=== PATIENT | female | born 1955 | race Caucasian/White ===

== ENCOUNTER → 2016-09-21 | Outpatient (CLI) | payer MEDICARE ==
[2016-09-21 08:49] LABS: ALT 43 U/L (9-52); AST 54 U/L (14-36); Alkaline Phosphatase 122 U/L (38-126); Anion Gap 14 mmol/L; Blood Urea Nitrogen 11 mg/dL (7-17); Calcium 9.5 mg/dL (8.4-10.2); Carbon Dioxide 25 mmol/L (22-30); Chloride 106 mmol/L (98-107); Glucose 120 mg/dL (74-99); Non-African American GFR(MDRD) >60 (>60 ml/min/1.73 sqM); Sodium 145 mmol/L (137-145); Total Bilirubin 1.2 mg/dL (0.2-1.3); Total Protein 8.1 g/dL (6.3-8.2)
--- NOTE | 2016-09-22 10:58 | MR ---
EXAMINATION TYPE: MR lumbar spine wo/w con DATE OF EXAM: 09/21/2016 9:58 AM COMPARISON: NONE HISTORY: hx of lsp surgery, chronic pain, lumbago Contrast: 15 mL MultiHance TECHNIQUE: T1 and T2 axial and sagittal, postcontrast T1 sagittal and axial images of the lumbar spi ne are submitted. FINDINGS: There is no abnormal signal seen within the visualized spinal cord or paraspinal soft tissu es. Tiny simple appearing renal cyst measuring less than 1 cm. At T12-L1 no disc herniation or canal stenosis. No foraminal encroachment. At L1-2 there is mild degenerative disc disease. Hypertrophic change of the facets noted. Minimal cir cumferential disc bulge with no canal stenosis. Significant foraminal encroachment. At L2-3 there is mild degenerative disc disease and facet arthropathy. Mild circumferential disc bulg ing. Mild right foraminal encroachment. Disc bulging extends laterally to the left moderate left-side d foraminal encroachment. Mass effect upon the exiting nerve root suspected. At L3-4 there is mild degenerative disc disease. There is mild bilateral facet arthropathy. No Canal stenosis. Circumferential disc bulging is greater far laterally to the left results in moderate left- sided foraminal encroachment. Mass effect upon the left nerve root suspected. At L4-5 there is vacuum disc and severe degenerative disc disease. There is a grade 1 anterolisthesis . Marked facet arthropathy. Ligamentum flavum hypertrophy is seen and there is suggestion of previous surgical intervention. No Canal stenosis. Moderate left foraminal encroachment and moderate right fo raminal encroachment. Enhancement posterior likely related to scar or granulation tissue. At L5-S1 there is moderate degenerative disc disease. Bilateral facet arthropathy. Central disc bulgi ng seen with mild right neural foraminal encroachment and moderate to severe left foraminal encroachm ent. Disc protrusion paracentrally right encroaches upon the right nerve root. IMPRESSION: 1. Mild degenerative disc disease at all levels with more moderate to severe changes at L4-5 and L5-S 1. Grade 1 anterolisthesis of L4 on L5. Suggestion of previous surgical intervention at this level wi th no obvious canal stenosis. Bilateral foraminal encroachment is seen. 2. Left foraminal encroachment with probable nerve root displacement L3-L4 secondary to a left latera l disc bulging. 3. Multilevel facet arthropathy 4. Small disc protrusion or disc herniation paracentrally the right L5-S1 with caudal migration which does encroach upon the right nerve root at this level. Correlate for radiculopathy on the right at t his level.
== END | disposition home or self-care (01) ==
LOC: RADMRIMAIN 08:01
PROVIDERS: ATTEND Physician Assistant
DX: M54.42 Lumbago with sciatica, left side (principal); M54.41 Lumbago with sciatica, right side; M51.36 Other intervertebral disc degeneration, lumbar region; M51.27 Other intervertebral disc displacement, lumbosacral region; G89.29 Other chronic pain; Z98.890 Other specified postprocedural states; M51.26 Other intervertebral disc displacement, lumbar region; I10 Essential (primary) hypertension
CPT/HCPCS: 80053; 72158; A9577

== ENCOUNTER → 2016-12-05 | Outpatient (CLI) | payer MEDICARE ==
[2016-12-05 09:38] LABS: EKG EKG PERFORMED
--- NOTE | 2016-12-05 10:10 | XR ---
EXAMINATION TYPE: XR chest 2V DATE OF EXAM: 12/05/2016 COMPARISON: NONE HISTORY: Presurgical study TECHNIQUE: Frontal and lateral views of the chest are obtained. FINDINGS: There is no focal air space opacity, pleural effusion, or pneumothorax seen. The cardiac silhouette size is within normal limits. The osseous structures are intact. Cholecystectomy clips a re noted on lateral view. IMPRESSION: No acute cardiopulmonary process.
[2016-12-05 10:45] LABS: Basophils # (A) 0.2 k/uL (0-0.2); Basophils % (A) 2 %; CH 30.9; CHCM 34.1; Eosinophils # (A) 0.4 k/uL (0-0.7); Eosinophils % (A) 4 %; HDW 2.34; HGB 15.2 gm/dL (11.4-16.0); Luc # (Auto) 0.23; Luc % (Auto) 2; Lymphocytes # (A) 3.3 k/uL (1.0-4.8); Lymphocytes % (A) 33 %; MCH 30.8 pg (25.0-35.0); MCHC 33.8 g/dL (31.0-37.0); MCV 91.1 fL (80.0-100.0); Mean Platelet Volume 7.6; Monocytes # (A) 0.6 k/uL (0-1.0); Monocytes % (A) 6 %; Neutrophils # (A) 5.4 k/uL (1.3-7.7); Neutrophils % (A) 54 %; RBC 4.94 m/uL (3.80-5.40); RDW 12.6 % (11.5-15.5); WBC (Perox) 9.85
[2016-12-05 11:01] LABS: Anion Gap 14 mmol/L; Appearance,Urine Clear (Clear); Bacteria,Urine Rare /hpf; Bilirubin,Urine Negative (Negative); Blood Urea Nitrogen 16 mg/dL (7-17); Calcium 9.3 mg/dL (8.4-10.2); Carbon Dioxide 21 mmol/L (22-30); Chloride 106 mmol/L (98-107); Glucose 88 mg/dL (74-99); Glucose,Urine (UA) Negative (Negative); Ketones,Urine Negative (Negative); Leukocyte Esterase,Urine Negative (Negative); Mucus,Urine Rare /hpf; Nitrite,Urine Negative (Negative); Non-African American GFR(MDRD) >60 (>60 ml/min/1.73 sqM); Particle Count 1961; Protein,Urine Negative (Negative); RBC,Urine 2 /hpf (0-5); Sodium 141 mmol/L (137-145); Specific Gravity,Urine 1.015 (1.001-1.035); Squamous Epithelial Cell,Urine 1 /hpf (0-4); UA Billing (MACRO vs. MICRO) MICRO; Urobilinogen,Urine <2.0 mg/dL (<2.0); WBC,Urine 1 /hpf (0-5)
[2016-12-05 11:41] LABS: INR 1.1 (<1.1); Partial Thromboplastin Time 25.2 sec (22.0-30.0); Prothrombin Time 11.1 sec (9.0-12.0)
== END | disposition home or self-care (01) ==
LOC: LABPAT 09:29
PROVIDERS: ATTEND Orthopaedic Surgery Orthopaedic Surgery of the Spine
DX: Z01.810 Encounter for preprocedural cardiovascular examination (principal); Z01.818 Encounter for other preprocedural examination; Z01.812 Encounter for preprocedural laboratory examination; M43.10 Spondylolisthesis, site unspecified
CPT/HCPCS: 71020; 80048; 81001; 85025; 85610; 85730; 86850; 86900; 86901; 87070; 93005

== ENCOUNTER 2016-12-14 07:30 | Inpatient (IN) | payer MEDICARE ==
[2016-12-06 10:31] VITALS: BMI 37.5
[~2016-12-14 07:30] MED LIST: BACITRACIN 50,000 UNIT, POLYMYXIN B 500,000 UNIT in SODIUM CHLORIDE 0.9% IRRIGATIO 1,00... IRRIGATION ONE; DEXAMETHASONE SOD PHOSPHATE 10 MG/ML 1 ML VIAL IV ONE; LIDOCAINE 1% 20 ML VIAL (10MG/ML) FOR IV START INTRADERMA PRN; MIDAZOLAM 2 MG/2 ML VIAL IV PRN; ONDANSETRON 4 MG/2 ML VIAL IVP ONE; SCOPOLAMINE 1.5MG/72HR PATCH TRANSDERM ONE; ceFAZolin 2 GM in SODIUM CHLORIDE 0.9% 100 ML IVPB ONE
[2016-12-14] MEDS: LACTATED RINGERS 1,000 ML IV SCH (08:13)
[2016-12-14] MEDS ORDERED: GLYCOPYRROLATE 0.2 MG/ML 2 ML VIAL ONE (10:15)
[2016-12-14] MEDS ORDERED: HYDROmorphone (PF) 1 MG/ML ONE (10:15)
[2016-12-14] MEDS ORDERED: LIDOCAINE 1% INJ 10MG/ML (20 ML MDV) ONE (10:15)
[2016-12-14] MEDS ORDERED: SODIUM CHLORIDE 0.9% IRRIG 1,000 ML BTL IRRIGATION ONE (10:15)
[2016-12-14] MEDS ORDERED: ROCURONIUM BROMIDE 10 MG/ML 10 ML VIAL IV ONE (10:15)
[2016-12-14] MEDS ORDERED: HEPARIN SODIUM,PORCINE 10,000 UNIT/ML 1 ML VIAL ONE (10:15)
[2016-12-14] MEDS ORDERED: fentaNYL (PF) 50 MCG/ML 2 ML AMP ONE (10:15)
[2016-12-14] MEDS ORDERED: PROPOFOL 10 MG/ML 20 ML VIAL IV ONE (10:15)
[2016-12-14] MEDS ORDERED: MIDAZOLAM 2 MG/2 ML VIAL ONE (10:15)
[2016-12-14] MEDS ORDERED: ePHEDrine 50 MG/ML 1 ML AMP ONE (10:15)
[2016-12-14] MEDS ORDERED: SUCCINYLCHOLINE CHLORIDE 100 MG/5 ML SYR IV ONE (10:15)
[2016-12-14] MEDS ORDERED: PHENYLEPHRINE-0.9% NACL SYG 1 MG/10 ML SYRINGE ONE (10:15)
[2016-12-14] MEDS ORDERED: NEOSTIGMINE 1 MG/ML 10 ML VIAL ONE (10:15)
[2016-12-14] MEDS ORDERED: SODIUM CHLORIDE 0.9% (PF) 10 ML VIAL ONE (10:37)
[2016-12-14] MEDS ORDERED: LIDOCAINE 0.5% (PF) 5 MG/ML (50 ML SDV) SQ ONE (10:51)
[2016-12-14] MEDS ORDERED: GELATIN SPONGE,ABSORB (SMALL) 1 EACH SPONGE TOPICAL ONE (10:53)
[2016-12-14] MEDS ORDERED: THROMBIN (BOVINE) 5,000 UNIT VIAL TOPICAL ONE (10:53)
[2016-12-14] MEDS: BUPIVACAINE LIPOSOME/PF 1.3% 20 ML, BUPIVACAIN-EPI 0.5%-1:200,000 25 ML, SODIUM CHLORID... MISCELLANE ONE ×6 (10:53→12:57)
[2016-12-14] MEDS ORDERED: LACTATED RINGERS 1,000 ML IV ONE ×3 (11:25→15:00)
--- NOTE | 2016-12-14 13:14 | FL ---
FLUOROSCOPY 1.22 minutes of fluoroscopy time were utilized during L4-5 fusion. 3 images document the procedure.
[2016-12-14] MEDS ORDERED: HYDROmorphone 1 MG/ML 1 ML SYRINGE IVP PRN ×2 (13:17)
[2016-12-14] MEDS ORDERED: BENZOCAINE/MENTHOL LOZENG 1 EACH LOZENGE MUCOUS MEM PRN (13:17)
[2016-12-14] MEDS ORDERED: DIAZEPAM 5 MG TAB PO PRN (13:17)
[2016-12-14] MEDS ORDERED: MAGNESIUM HYDROXIDE 2,400 MG/10 ML CUP PO PRN (13:17)
[2016-12-14] MEDS ORDERED: HYDROcodone/APAP 5-325MG 1 EACH TAB PO PRN (13:18)
[2016-12-14] MEDS ORDERED: ONDANSETRON 4 MG/2 ML VIAL IVP PRN (13:18)
[2016-12-14] MEDS ORDERED: diphenhydrAMINE 50 MG CAP PO PRN (13:24)
[2016-12-14] MEDS ORDERED: AZELASTINE 137MCG/SPRAY NASAL PRN (13:24)
--- NOTE | 2016-12-14 13:32 | P.OP ---
Date of Procedure: 12/14/16 Preoperative Diagnosis: Dynamic spondylolisthesis grade 2 at L4 5, low back pain with lower extremity radiculopathy, history of prior laminectomy decompression L4 5 Postoperative Diagnosis: Same Procedure(s) Performed: Implants: Anesthesia: GETA Pathology: none sent Condition: stable Disposition: PACU Indications for Procedure: Operative Findings: Description of Procedure: DESCRIPTION OF PROCEDURE(S): BRIEF OPERATIVE NOTE Preoperative Diagnosis: Dynamic spondylolisthesis, grade 2, L4 5 Low back pain with lower extremity radiculopathy History of prior laminectomy decompression L4 5 Postoperative Diagnosis: same Procedure: Revision minimally invasiveLaminectomy and decompression and discectomy L4 5 Minimally invasive Posterior lateral decompression and fusion L4 5 Minimally invasive Transforaminal lumbar interbody fusion for a 360 fusion L4 5 RevisionDiscectomy for decompression L4 5 Placement of interbody graft L4 5 Local autogenous bone grafting Use of Cell Saver Use of bone graft extenders Harvesting and use of bone marrow aspirate through the pedicle of L4 Surgeon: Dr. Adame Foundry Melt Supervisor: Hesham Wolf is present throughout the entire the case persistence during positioning, dissection, exposure, visualization, and all crucial elements of the case as well as closure. Anesthesia: General anesthesia Estimated blood loss: approximately 250 mL with 100 given back through Cell Saver Complications: None apparent Components implanted: K2M minimally invasive Vaughn screw system with 4 screws measuring 6.5 x 45 mm also with a [place] 10 mm interbody cage and osteal and sponge with fibrous DBX allograft Disposition: To recovery room in good stable condition. OPERATIVE INDICATIONS The patient has had long-standing issues in their lower back and lower extremities. The patient had a history of laminectomy decompression the past which did her well in terms of her radicular symptoms. She was doing well but then started having some increasing pain at her lower back the pain was progressive for her in significant we debilitating. She is found have a dynamic spondylolisthesis at L4 5 at the site of her prior laminectomy decompression. This finding correlated well with her lower extremity and back symptoms. The listhesis was not apparent on the MRI but was apparent on standing and dynamic films of her lumbar spine. The patient has been through conservative treatment. She is not having any lasting benefit despite conservative treatment and was having worsening of her symptoms and significant debility. We discussed various treatment options including surgery, and the patient wishes to proceed with surgery We discussed the risk, patient's alternatives and benefits of surgery including but not limited to, risk of bleeding risk of infection, risk of need for further surgery, risk of decreased , loss of motion, muscle function, malunion nonunion, hardware failure, nerve damage, paralysis, heart attack, blindness and . OPERATIVE SUMMARY After discussing all the risks, patient alternatives and benefits at length, the patient elected to proceed with surgical intervention, signed informed consent, and presented for their procedure. The patient was seen and examined in the preoperative holding area and the surgical site was marked. The patient was given antibiotics and brought to the operating room. The patient was sedated and intubated by anesthesia in standard fashion. The patient was positioned on to the operating room table in a prone position on the appropriate frame which was well-padded and well molded. We were careful to pad any bony prominences and pressure points. We were careful to maintain the patient's cervical spine and good neutral alignment and position throughout. The patient was prepped and draped in a normal standard fashion. An appropriate timeout and keystone protocol performed. We were able to proceed with the surgery. The local wound area was infiltrated with local anesthetic. I was able utilize C-arm guidance to establish appropriate position over the pedicles bilaterally at the appropriate levels of L4 and 5 . With the appropriate levels confirmed was able to make small stab incisions over the appropriate pedicle sites bilaterally. Utilizing C-arm in his house able to establish a Jamshidi needle over the lateral aspect of the pedicle and advanced the trocar into the pedicle being careful not to breech superiorly inferiorly medially or laterally. Position was confirmed regularly with AP and lateral images on C-arm. I was able to establish the trocar into the pedicle appropriately into the posterior aspect of the vertebral body bilaterally at the appropriate levels. This was done at each of the pedicle positions and each of the vertebrae. I was able place the guidewire into the trocar and into the vertebral body appropriately under C-arm guidance. Dissection was taken down over the wire to the appropriate starting position for the screw placed. The appropriate length screw was chosen, threaded over the guidewire and screwed appropriately into the pedicle and vertebral body under C-arm guidance in excellent alignment and position with good bony purchase. This is done at each of the screw sites at the appropriate levels at L4 and L5 . at L4 on the right I withdrew and harvested bone marrow aspirate from the pedicle hole which was used for enhancing the bone graft was used later in the case. With the screws intact I extended the incision to connect the screw hole sites on the most symptomatic side on the left . I dissected down to establish access over the pars and lamina to the base of the spinous process. I was able to expose the facet joint. The capsule the facet was taken down and showed some facet arthrosis at the joint. Note was made of the prior laminectomy site. There was some increased difficulty due to prior laminectomy I was able to perform a revision laminectomy and decompression on the left. I was able to use a combination of curettes and Kerr[place] rongeurs and a high-speed drill to take down the facet joint and do a facetectomy. Partial laminectomy was also performed. I was able get excellent foraminal decompression and central decompression with undermining across midline to perform a laminectomy centrally and contralaterally. As able get good central decompression. The ligamentum flavum was taken down to further decompress centrally and at bilateral neural foramen. I was able to expose the disc space and visualize the traversing nerve root. No was made of some disc protrusion at the level causing further compression of the nerve root. I was able to establish a annulotomy at the appropriate level protecting soft tissue and neural structures. I was able to perform revision discectomy for further decompression. Note was made of some disc desiccation at the disc. I performed a complete discectomy with accommodation of curettes and rasps and scrapers. I was able get good endplate preparation at the disc space. I sized for the appropriate size interbody spacer protecting the soft tissue and neural structures. The wound was copiously irrigated and suctioned dry. There is no evidence of any dural tear or leak. I was able to pack the disc space with local autogenous bone graft as well as a small amount of infuse which was also placed into the interbody cage itself. Protecting the soft tissue structures and neural structures I was able place the interbody cage in good alignment and good position with good fit and fill at the interbody space. His issues was confirmed with C-arm guidance. Good hemostasis maintained. There is no evidence of any dural tear or leak. The wound was irrigated and suctioned dry. With the hardware intact, intraoperative C-arm imaging was again taken which showed good alignment and position of the hardware at the appropriate levels of L4 and L5 . We were then able to measure, contour and place the rods and appropriate hardware bilaterally. I was able to place capcrews, tighten them down, and shear them off appropriately. The sheared portion was counted and accounted for. With this intact I was able to place the local autogenous bone graft with additional bone graft enhancer as necessary into the posterior lateral gutters and into the decorticated facet joint on the right. The remainder of the infuse was placed over the facet joint on the contralateral side after taking down the facet joint capsule. With the bone graft intact, a stable construct, and good decompression at the appropriate levels, we were able to proceed with closure. Good hemostasis was maintained. There is no evidence of dural tear or leak. The fascia was closed for a watertight closure. he subcuticular tissue was closed with absorbable suture. The wound was cleaned and dried and dressed with the appropriate dressing. The drapes were broken down. The patient was gently rolled back onto their hospital bed being careful to maintain their cervical spine and good neutral alignment and position. They were woken up by anesthesia, extubated, and brought to the recovery room in good stable condition. The patient will be admitted to the hospital for appropriate postoperative care , medical management and monitoring. We will continue to follow them closely about the postoperative course.
[2016-12-14] MEDS ORDERED: diphenhydrAMINE 50 MG/ML 1 ML VIAL IVP ONE (14:02)
[2016-12-14] MEDS: HYDROmorphone 1 MG/ML 1 ML SYRINGE IVP PRN ×2 (14:50→15:00)
[2016-12-14] MEDS: ceFAZolin 2 GM in SODIUM CHLORIDE 0.9% 100 ML IVPB SCH (17:46)
[2016-12-14] MEDS: PANTOPRAZOLE 40 MG TABLET PO SCH (17:46)
[2016-12-14] MEDS: HYDROcodone/APAP 5-325MG 1 EACH TAB PO PRN ×2 (17:50→21:43)
--- NOTE | 2016-12-14 18:28 | XR ---
EXAMINATION TYPE: XR chest 1V portable DATE OF EXAM: 12/14/2016 COMPARISON: 12/05/2016 HISTORY: Chest pain. Tachycardia. TECHNIQUE: Single frontal view of the chest is obtained. FINDINGS: Heart and mediastinum are normal. Lungs are clear. Diaphragm is normal. Bony thorax appear s intact. IMPRESSION: Normal chest. No change.
[2016-12-14 18:36] LABS: Basophils # (A) 0.1 k/uL (0-0.2); Basophils % (A) 1 %; CH 30.5; CHCM 33.9; Eosinophils # (A) 0.2 k/uL (0-0.7); Eosinophils % (A) 1 %; HCT 37.4 % (34.0-46.0); HDW 2.31; HGB 12.6 gm/dL (11.4-16.0); Luc % (Auto) 1; Lymphocytes # (A) 3.2 k/uL (1.0-4.8); Lymphocytes % (A) 21 %; MCH 30.3 pg (25.0-35.0); MCHC 33.6 g/dL (31.0-37.0); MCV 90.2 fL (80.0-100.0); Mean Platelet Volume 7.4; Monocytes # (A) 0.8 k/uL (0-1.0); Monocytes % (A) 5 %; Neutrophils # (A) 10.7 k/uL (1.3-7.7); Neutrophils % (A) 70 %; RBC 4.15 m/uL (3.80-5.40); RDW 12.5 % (11.5-15.5); WBC 15.2 k/uL (3.8-10.6); WBC (Perox) 15.33
[2016-12-14 18:55] LABS: ALT 49 U/L (9-52); AST 52 U/L (14-36); Alkaline Phosphatase 103 U/L (38-126); Anion Gap 10 mmol/L; Blood Urea Nitrogen 12 mg/dL (7-17); Calcium 8.3 mg/dL (8.4-10.2); Carbon Dioxide 25 mmol/L (22-30); Chloride 105 mmol/L (98-107); Glucose 95 mg/dL (74-99); Non-African American GFR(MDRD) >60 (>60 ml/min/1.73 sqM); Potassium 4.2 mmol/L (3.5-5.1); Sodium 140 mmol/L (137-145); Total Bilirubin 0.7 mg/dL (0.2-1.3)
[2016-12-14] MEDS: SODIUM CHLORIDE 0.9% 1,000 ML IV SCH (20:34)
[2016-12-14 23:38] LABS: Appearance,Urine Clear (Clear); Bacteria,Urine Rare /hpf; Bilirubin,Urine Negative (Negative); Glucose,Urine (UA) Negative (Negative); Ketones,Urine Negative (Negative); Leukocyte Esterase,Urine Trace (Negative); Nitrite,Urine Negative (Negative); PH, Urine 6.5 (5.0-8.0); Particle Count 601; Protein,Urine Negative (Negative); RBC,Urine <1 /hpf (0-5); Specific Gravity,Urine 1.003 (1.001-1.035); UA Billing (MACRO vs. MICRO) MICRO; Urobilinogen,Urine <2.0 mg/dL (<2.0); WBC,Urine 2 /hpf (0-5)
[2016-12-15] MEDS: HYDROcodone/APAP 5-325MG 1 EACH TAB PO PRN ×5 (01:50→21:20)
[2016-12-15] MEDS: ceFAZolin 2 GM in SODIUM CHLORIDE 0.9% 100 ML IVPB SCH (01:50)
[2016-12-15] MEDS: SODIUM CHLORIDE 0.9% 1,000 ML IV SCH ×2 (06:01→15:37)
[2016-12-15 07:00] LABS: Basophils # (A) 0.1 k/uL (0-0.2); Basophils % (A) 1 %; CH 29.8; CHCM 33.2; Eosinophils # (A) 0.4 k/uL (0-0.7); Eosinophils % (A) 3 %; HCT 35.1 % (34.0-46.0); HDW 2.35; Luc # (Auto) 0.24; Luc % (Auto) 2; Lymphocytes # (A) 2.1 k/uL (1.0-4.8); Lymphocytes % (A) 17 %; MCH 30.8 pg (25.0-35.0); MCHC 34.3 g/dL (31.0-37.0); MCV 89.9 fL (80.0-100.0); Mean Platelet Volume 7.2; Monocytes # (A) 0.7 k/uL (0-1.0); Monocytes % (A) 5 %; Neutrophils % (A) 72 %; RBC 3.91 m/uL (3.80-5.40); RDW 12.1 % (11.5-15.5); WBC 12.5 k/uL (3.8-10.6); WBC (Perox) 13.02
[2016-12-15 07:20] LABS: Anion Gap 7 mmol/L; Blood Urea Nitrogen 10 mg/dL (7-17); Calcium 8.2 mg/dL (8.4-10.2); Carbon Dioxide 27 mmol/L (22-30); Chloride 103 mmol/L (98-107); Glucose 104 mg/dL (74-99); Non-African American GFR(MDRD) >60 (>60 ml/min/1.73 sqM); Potassium 3.8 mmol/L (3.5-5.1); Sodium 137 mmol/L (137-145)
--- NOTE | 2016-12-15 08:05 | P.PN ---
Progress Note - Text Postoperative day #1 Patient is seen and examined today at bedside. The patient has some pain around the surgical site as expected. Pain is being controlled with medication. She was tachycardic yesterday which seems to have stabilized to some degree. Her EKG showed some possible changes which were being managed with medical service but she is having some elevated troponins this morning. She denies any chest pain or shortness of breath. She denies any significant cardiac history. She is not having a tightness in her chest her back. She does have some pain over her surgical site at her lower back as expected. Her legs are doing well. Physical Exam Afebrile with stable vital signs Abdomen is soft nontender. Chest has good excursion deep and space expiration The incision site is clean dry and intact. No erythema there is no purulence. Extremities have not had neurologic change from prior to surgery.She has sustained dorsal flexion plantar flexion and extensor hallucis longus intact. Calves and thighs were soft nontender without evidence of DVT. Assessment/Plan Postoperative day #1 status post decompression and fusion with minimally invasive approach at L4 5 for her dynamic spondylolisthesis Tachycardia with elevated troponins The patient is not having any cardiac symptoms other than her tachycardia which her labs do show some potential elevation. Medicine is following her and cons we have consult to cardiology involved case also following manage for any cardiac issues. Otherwise in terms of her spine the Patient is progressing as expected from the surgery. She has some pain in her lower back but she is already sitting up in sinus bed and eating her breakfast. She seems to progressing appropriately from her surgery and hopefully we will continue to make good progress We will continue to increase the patient's mobilization with therapy. We will continue pain control with oral or IV medications. We'll continue to follow patient closely.
[2016-12-15] MEDS: LACTATED RINGERS 1,000 ML IV SCH (08:56)
[2016-12-15] MEDS: amLODIPine 5 MG TAB PO SCH (09:37)
[2016-12-15] MEDS: PARoxetine 20 MG TAB PO SCH (09:37)
[2016-12-15] MEDS: PANTOPRAZOLE 40 MG TABLET PO SCH ×2 (09:37→17:40)
[2016-12-15] MEDS: SENNOSIDES-DOCUSATE SODIUM 1 EACH TAB PO SCH (09:38)
--- NOTE | 2016-12-15 11:14 | P.CRDCN ---
History of Present Illness Consult date: 12/15/16 Consult reason: post-op evaluation History of present illness: 61-year-old lady with history of mild hypertension underwent spinal fusion surgery yesterday and had tachycardia for which cardiology was consulted. An EKG showed sinus rhythm without acute ST-T wave changes. Her troponin was mildly elevated and of unclear significance. She denied chest pain difficulty in breathing palpitations dizziness or syncope. There is no prior cardiac history. There is no history of coronary artery disease congestive heart failure R valvular heart disease. In the moment patient is free of symptoms heart rate is normal. The exact etiology for mild troponin elevation is unclear the check echocardiogram could be related to the perioperative period. I will obtain a 2-D echo to assess LV function and wall motion. If this looks normal she doesn't require further evaluation at this time but on discharge I'm going to schedule her for a stress test. Review of Systems Constitutional: Denies chills. Denies fever. Eyes: Denies blurred vision. Denies pain. Ears, nose, mouth and throat: Denies headache. Denies sore throat. Cardiovascular: Denies chest pain. Denies shortness of breath. Respiratory: Denies cough. Gastrointestinal: Denies abdominal pain. Denies diarrhea. Denies nausea. Denies vomiting. Musculoskeletal: Denies myalgias. Back pain Integumentary: Denies pruritus. Denies rash. Neurological: Denies numbness. Denies weakness. Psychiatric: Denies anxiety. Denies depression. Endocrine: Denies fatigue. Denies weight change. Genitourinary: Denies burning, hematuria, frequency of urination. Hematological: No anemia or excess bleeding. Past Medical History Past Medical History: GERD/Reflux, Hypertension, Pneumonia, Skin Disorder Additional Past Medical History / Comment(s): hx migraines, occ palpitations, arthritis in hands, psoriasis, History of Any Multi-Drug Resistant Organisms: None Reported Past Surgical History: Back Surgery, Section, Cholecystectomy, Orthopedic Surgery, Tonsillectomy Additional Past Surgical History / Comment(s): tonny carpal tunnel, arthroscopy rt knee, cervical surgery x 2, sinus surgery x 3, trigger finger middle finger both hands, bunionectomy rt foot, Past Anesthesia/Blood Transfusion Reactions: Postoperative Nausea & Vomiting ( PONV) Additional Past Anesthesia/Blood Transfusion Reaction / Comment(s): past cervical surgery-states no limitations in neck movement and no problems with general anesthesia Past Psychological History: Anxiety Smoking Status: Former smoker - Past Family History Father Family Medical History: Deep Vein Thrombosis (DVT) Brother(s) Family Medical History: No Reported History Medications and Allergies Home Medications Medication Instructions Recorded Confirmed Type Azelastine HCl [Astepro] 2 spray NASAL DAILY PRN 12/06/16 12/14/16 History Multivitamin [Multiple Vitamins] 1 tab PO DAILY 12/06/16 12/14/16 History Omeprazole [PriLOSEC] 20 mg PO AC-BID 12/06/16 12/14/16 History PARoxetine [Paxil] 20 mg PO DAILY 12/06/16 12/14/16 History amLODIPine [Norvasc] 5 mg PO DAILY 12/06/16 12/14/16 History Allergies Allergy/AdvReac Type Severity Reaction Status Date / Time acetaminophen [From Vicodin] Allergy Itching/ignacio Verified 12/06/16 10:19 h codeine Allergy Itching Verified 12/06/16 10:19 hydrocodone Allergy Itching Verified 12/06/16 10:19 meperidine [From Demerol] Allergy Itching Verified 12/06/16 10:19 morphine Allergy Itching Verified 12/06/16 10:19 tramadol [From Ultram] Allergy Itching Verified 12/06/16 10:19 Physical Exam Vitals: Vital Signs Temp Pulse Pulse Pulse Pulse Resp BP 12/15/16 08:06 92 92 12/15/16 07:42 97.1 F L 92 97 92 18 12/15/16 01:29 98.2 F 96 16 116/58 12/14/16 20:00 122 H 12/14/16 19:10 98.7 F 123 H 16 113/50 12/14/16 18:30 113/50 12/14/16 18:15 116/47 12/14/16 18:00 125/61 12/14/16 17:45 114/80 12/14/16 17:30 116/61 12/14/16 17:15 120/50 12/14/16 17:00 117/62 12/14/16 16:45 121/55 12/14/16 16:30 99.1 F 130 H 16 124/51 12/14/16 16:00 129 H 18 112/53 12/14/16 15:45 133 H 18 116/56 12/14/16 15:32 135 H 18 109/55 12/14/16 15:17 125 H 18 123/56 12/14/16 15:02 127 H 18 121/58 12/14/16 14:45 128 H 18 118/56 12/14/16 14:30 126 H 18 128/57 12/14/16 14:15 129 H 18 130/63 12/14/16 14:00 127 H 16 150/70 12/14/16 13:45 98 F 120 H 16 125/59 BP Pulse Ox 12/15/16 08:06 12/15/16 07:42 112/74 95 12/15/16 01:29 98 12/14/16 20:00 12/14/16 19:10 96 12/14/16 18:30 12/14/16 18:15 12/14/16 18:00 12/14/16 17:45 12/14/16 17:30 12/14/16 17:15 12/14/16 17:00 12/14/16 16:45 12/14/16 16:30 93 L 12/14/16 16:00 94 L 12/14/16 15:45 93 L 12/14/16 15:32 94 L 12/14/16 15:17 94 L 12/14/16 15:02 97 12/14/16 14:45 99 12/14/16 14:30 98 12/14/16 14:15 98 12/14/16 14:00 99 12/14/16 13:45 97 Intake and Output 12/14/16 12/15/16 12/15/16 22:59 06:59 14:59 Intake Total 1105 235 4438 Output Total 550 1700 Balance 750 900 852 Intake: IV 1300 1900 Invasive Line 1 1900 Intake, IV Titration 900 650 Amount Sodium Chloride 0.9% 1, 900 650 000 ml @ 75 mls/hr IV . [id number] [facility] Rx#:[id number] Oral 2 Output: Urine 550 1700 Uretheral (Dang) 700 Other: Voiding Method Indwelling Catheter Weight 90.265 kg General: The patient is awake and alert, in no distress, and does not appear acutely ill. Skin: Skin is warm and dry and no rashes or lesions are noted. Eye: Pupils are equal, round and reactive to light, extra-ocular movements are intact; there is normal conjunctiva bilaterally. Ears, nose, mouth and throat: There are moist mucous membranes and no oral lesions. Neck: The neck is supple, there is no tenderness or JVD. Cardiovascular: There is a regular rate and rhythm. No murmur, rub or gallop is appreciated. Respiratory: Lungs are clear to auscultation, respirations are non-labored, breath sounds are equal. Gastrointestinal: Soft, non-distended, non-tender abdomen without masses or organomegaly noted. There is no rebound or guarding present. Bowel sounds are unremarkable. Back: There is no tenderness to palpation in the midline. There is no obvious deformity. Patient is status post surgery Musculoskeletal: Normal ROM, no tenderness, There is no pedal edema. There is no calf tenderness or swelling. Extremities: No edema. Vascular: Femoral pulse is normal. Posterior tibial pulses are normal .Dorsalis pedis is palpable. Neurological: CN II-XII intact. There are no obvious motor or sensory deficits. Speech is normal. Psychiatric: Cooperative, appropriate mood & affect, normal judgment. Results 12/15/16 06:30 12/15/16 06:30 Cardiac Enzymes 12/14/16 12/14/16 12/15/16 Range/Units 18:24 18:24 06:30 AST 52 H (14-36) U/L Troponin I 0.014 0.035 H* (0.000-0.034) ng/mL CBC 12/14/16 12/15/16 Range/Units 18:24 06:30 WBC 15.2 H 12.5 H (3.8-10.6) k/uL RBC 4.15 3.91 (3.80-5.40) m/uL Hgb 12.6 12.0 (11.4-16.0) gm/dL Hct 37.4 35.1 (34.0-46.0) % Plt Count 117 L 104 L (150-450) k/uL Comprehensive Metabolic Panel 12/14/16 12/15/16 Range/Units 18:24 06:30 Sodium 140 137 (137-145) mmol/L Potassium 4.2 3.8 (3.5-5.1) mmol/L Chloride 105 103 (98-107) mmol/L Carbon Dioxide 25 27 (22-30) mmol/L BUN 12 10 (7-17) mg/dL Creatinine 0.70 0.60 (0.52-1.04) mg/dL Glucose 95 104 H (74-99) mg/dL Calcium 8.3 L 8.2 L (8.4-10.2) mg/dL AST 52 H (14-36) U/L ALT 49 (9-52) U/L Alkaline Phosphatase 103 (38-126) U/L Total Protein 6.0 L (6.3-8.2) g/dL Albumin 3.4 L (3.5-5.0) g/dL Current Medications Generic Name Dose Route Start Last Admin Trade Name Freq PRN Reason Stop Dose Admin Hydrocodone Bitart/Acetaminophen 1 each 12/14/16 13:18 [place] 5-325 PO Q4HR PRN Moderate Pain Hydrocodone Bitart/Acetaminophen 2 each 12/14/16 13:18 12/15/16 10:24 [place] 5-325 PO 2 each Q4HR PRN Administration Moderate Pain Amlodipine Besylate 5 mg 12/15/16 09:00 12/15/16 09:37 Norvasc PO 5 mg DAILY ROHITH Administration Azelastine HCl 2 spray 12/14/16 13:24 Astepro NASAL DAILY PRN Nasal Congestion Benzocaine/Menthol 1 each 12/14/16 13:17 Cepacol Lozenge MUCOUS MEM Q4HR PRN Sore Throat Diazepam 5 mg 12/14/16 13:17 Valium PO QID PRN Anxiety Diphenhydramine HCl 50 mg 12/14/16 13:24 Benadryl PO QID PRN Itching Hydromorphone HCl 0.5 mg 12/14/16 13:17 Dilaudid IVP Q4HR PRN Pain Hydromorphone HCl 1 mg 12/14/16 13:17 Dilaudid IVP Q4HR PRN Pain Lactated Ringer's 1,000 mls @ 20 mls/hr 12/14/16 06:01 12/15/16 08:56 Lactated Ringers IV Not Given .Q24H ROHITH Sodium Chloride 1,000 mls @ 75 mls/hr 12/14/16 13:30 12/15/16 06:01 Saline 0.9% IV Not Given .[id number] ROHITH Lidocaine HCl 0.1 ml 12/14/16 06:01 12/14/16 08:13 .Xylocaine 1% Inj (10mg/Ml) For Iv Start INTRADERMA 0.1 ml PER PROTOCOL PRN Administration IV Start Magnesium Hydroxide 2,400 mg 12/14/16 13:17 Milk Of Magnesia PO DAILY PRN Constipation Multivitamins 1 each 12/15/16 12:00 Theragran PO DAILY@1200 ROHITH Ondansetron HCl 4 mg 12/14/16 13:18 Zofran IVP Q8HR PRN Nausea And Vomiting Pantoprazole Sodium 40 mg 12/14/16 17:30 12/15/16 09:37 Protonix PO 40 mg AC-BID ROHITH Administration Paroxetine HCl 20 mg 12/15/16 09:00 12/15/16 09:37 Paxil PO 20 mg DAILY ROHITH Administration Senna/Docusate Sodium 1 each 12/15/16 09:00 12/15/16 09:38 Senokot-S PO 1 each DAILY ROHITH Administration Intake and Output 12/14/16 12/15/16 12/15/16 22:59 06:59 14:59 Intake Total 0002 687 9197 Output Total 550 1700 Balance 750 900 852 Intake: IV 1300 1900 Invasive Line 1 1900 Intake, IV Titration 900 650 Amount Sodium Chloride 0.9% 1, 900 650 000 ml @ 75 mls/hr IV . [id number] [facility] Rx#:[id number] Oral 2 Output: Urine 550 1700 Uretheral (Dang) 700 Other: Voiding Method Indwelling Catheter Weight 90.265 kg 12/15/16 06:30 12/15/16 06:30 EKG Interpretations (text) Normal sinus rhythm with sinus tachycardia Assessment and Plan Plan: Mild troponin elevation Sinus tachycardia History of hypertension Status post lumbar fusion surgery I reviewed EKG lab tests. I will follow troponin. I'm going to review an echocardiogram. I don't anticipate much further testing at this time.
--- NOTE | 2016-12-15 12:47 | ECHOF ---
Referral Reason:tachycardia MEASUREMENTS -------- HEIGHT: 154.9 cm WEIGHT: 90.3 kg BP: 116/58 RVIDd: 3.2 cm (< 3.3) IVSd: 1.1 cm (0.6 - 1.1) LVIDd: 4.7 cm (3.9 - 5.3) LVPWd: 1.1 cm (0.6 - 1.1) IVSs: 1.6 cm LVIDs: 2.7 cm LVPWs: 1.6 cm LAESV Index (A-L): 28.27 ml/m Ao Diam: 3.0 cm (2.0 - 3.7) AV Cusp: 2.0 cm (1.5 - 2.6) LA Diam: 3.8 cm (2.7 - 3.8) MV EXCURSION: 17.896 mm (> 18.000) MV EF SLOPE: 110 mm/s (70 - 150) EPSS: 0.8 cm MV E Cosme: 1.07 m/s MV DecT: 233 ms MV A Cosme: 1.28 m/s MV E/A Ratio: 0.84 RAP: 5.00 mmHg RVSP: 13.49 mmHg FINDINGS -------- Sinus rhythm. This was a technically adequate study. Overall left ventricular systolic function is normal with, an EF between 60 - 65 %. The right ventricle is normal in size and function. LA is midly dilated 29-33ml/m2. The right atrium is normal in size. Aortic valve is trileaflet and is mildly thickened. There is no evidence of aortic regurgitation. There is no evidence of aortic stenosis. The mitral valve leaflets are mildly thickened. Mild mitral annular calcification present. There is trace mitral regurgitation. Trace tricuspid regurgitation present. The pulmonic valve was not well visualized. The aortic root size is normal. Normal inferior vena cava with normal inspiratory collapse consistent with estimated right atrial pressure of 5 mmHg. The pericardium is normal. There is no pericardial effusion. CONCLUSIONS -------- 1. Sinus rhythm. 2. The pulmonic valve was not well visualized. 3. The aortic root size is normal. 4. There is no pericardial effusion. 5. This was a technically adequate study. 6. Overall left ventricular systolic function is normal with, an EF between 60 - 65 %. 7. LA is midly dilated 29-33ml/m2. 8. Aortic valve is trileaflet and is mildly thickened. 9. The mitral valve leaflets are mildly thickened. 10. Mild mitral annular calcification present. 11. There is trace mitral regurgitation. 12. Trace tricuspid regurgitation present. SCALE TECHNICIAN: Timmy Gtz RDCS
[2016-12-15] MEDS: MULTIVITAMINS, THERA 1 EACH TAB PO SCH (12:59)
[2016-12-15] MEDS: METOPROLOL TARTRATE 12.5 MG TAB PO SCH (12:59)
[2016-12-16] MEDS: HYDROcodone/APAP 5-325MG 1 EACH TAB PO PRN ×4 (07:01→21:26)
[2016-12-16] MEDS: SODIUM CHLORIDE 0.9% 1,000 ML IV SCH ×2 (07:15→19:51)
[2016-12-16] MEDS: LACTATED RINGERS 1,000 ML IV SCH (07:15)
[2016-12-16] MEDS: PANTOPRAZOLE 40 MG TABLET PO SCH ×2 (07:34→17:24)
[2016-12-16] MEDS: amLODIPine 5 MG TAB PO SCH (08:51)
[2016-12-16] MEDS: METOPROLOL TARTRATE 12.5 MG TAB PO SCH (08:52)
[2016-12-16] MEDS: PARoxetine 20 MG TAB PO SCH (08:55)
--- NOTE | 2016-12-16 10:29 | P.PN ---
Subjective Principal diagnosis: Elevated troponin Patient is doing well and is free of symptoms echocardiogram is within normal limits the next set of troponin is normal no further workup at this time will need outpatient stress test Objective - Vital Signs Vital signs: Vital Signs Temp 98.3 F 12/16/16 07:48 Pulse 87 12/16/16 09:25 Resp 19 12/16/16 09:25 BP 116/73 12/16/16 07:48 Pulse Ox 96 12/16/16 09:38 Intake & Output 12/15/16 12/16/16 12/16/16 18:59 06:59 18:59 Intake Total 2552 750 3 Output Total 2000 Balance 552 750 3 Intake: IV 1900 Invasive Line 1 1900 Intake, IV Titration 650 750 Amount Sodium Chloride 0.9% 1, 650 750 000 ml @ 75 mls/hr IV . [id number] [facility] Rx#:[id number] Oral 2 3 Output: Urine 2000 Uretheral (Dang) 700 Other: Voiding Method Toilet Toilet - Exam Comfortable at rest vital signs are stable there is a jugular venous distention chest exam reveals good air entry bilaterally heart exam reveals first and second heart sounds no gallop exam extremities did not will any edema per for pulses are felt - Labs CBC & Chem 7: 12/15/16 06:30 12/15/16 06:30 Assessment and Plan Plan: Elevated troponin of unclear clinical significance Further workup at this time Stable to be discharged home Outpatient stress test
[2016-12-16] MEDS: SENNOSIDES-DOCUSATE SODIUM 1 EACH TAB PO SCH (11:12)
[2016-12-16] MEDS: MULTIVITAMINS, THERA 1 EACH TAB PO SCH (11:12)
--- NOTE | 2016-12-16 13:12 | P.PN ---
Progress Note - Text Orthopedic Spine Patient is a pleasant 61-year-old female who is seen and examined at the bedside following posterior lateral decompression and fusion performed Monday. Patient states they are doing well postsurgically. She has been able to discontinue Dilaudid IV. She continues to take [place] as prescribed as needed for some control of her symptoms. She continues to have some pain at the surgical sites of the lumbar spine. She complains of left thigh pain today as well. Overall, she states she does feel she is improving as compared to yesterday. She has been able to ambulate the hallways with the assistance of physical therapy. Her Dang catheter has been discontinued. Currently does not complain of nausea, vomiting, fever, or chills. Patient states her pain has been adequately controlled. Patient is eating and voiding freely without difficulty. She feels that if she continues to improve today, she may be ready for discharge home tomorrow, 12/17/2016. She also states she is not currently experiencing any cardiac symptoms. She's been seen and examined by Dr. Parker. She states after further examination by him and after an echo cardiogram, he has cleared her for discharge with follow-up evaluation in the outpatient setting. Patient states she already has a walker for home as well. Physical Exam Lumbar Fusion: Status post surgical day number 2 Patient is awake, alert, and oriented 3 Vital signs stable Good chest excursion with deep inspiration and expiration Abdomen soft nontender Dorsiflexion, plantarflexion, and extensor hallucis longus positive sustained bilaterally No signs or symptoms of DVT; no calf pain; pneumatic cuffs intact bilateral lower extremities Dressing is clean, dry, and intact; no erythema, purulence, or signs of infection Neurovascularly intact bilaterally lower extremities Assessment: Revision L4-5 laminectomy, decompression and discectomy with minimally invasive posterior lateral decompression and fusion L4-5 Transforaminal lumbar interbody fusion L4-5 Plan: 1. Ambulate as tolerated; work with Physical Therapy to increase mobilization 2. Continue pain control with oral medications; patient will be given prescriptions for [place] 7.5 mg / 325mg 1 tab every 6 hours as needed for pain dispense #90 and Flexeril 10 mg 1 tab every 8 hours for muscle spasm dispensed # 90 discharge 3. Dressing changed to Telfa and Tegaderm; patient may shower with Tegaderm dressing intact 4. Medical management and cardiology will continue to manage patient for patient's other medical issues 5. We will continue to follow the patient closely; if the patient continues to improve, we will plan for discharge home tomorrow, 12/17/2016 6. Patient can follow-up with Hesham Myles PA-C or Dr. Adithya Adame at [facility] in 2-3 weeks following discharge
[2016-12-17] MEDS: HYDROcodone/APAP 5-325MG 1 EACH TAB PO PRN ×3 (01:37→11:09)
[2016-12-17 07:18] VITALS: PULSE 87; RESP 18; TEMP 97.1
[2016-12-17] MEDS: PANTOPRAZOLE 40 MG TABLET PO SCH (07:35)
[2016-12-17] MEDS: PARoxetine 20 MG TAB PO SCH (07:35)
[2016-12-17] MEDS: SENNOSIDES-DOCUSATE SODIUM 1 EACH TAB PO SCH (07:35)
[2016-12-17] MEDS: MULTIVITAMINS, THERA 1 EACH TAB PO SCH (07:35)
[2016-12-17] MEDS: LACTATED RINGERS 1,000 ML IV SCH (07:36)
[2016-12-17] MEDS: SODIUM CHLORIDE 0.9% 1,000 ML IV SCH (07:36)
--- NOTE | 2016-12-17 09:52 | CONS ---
REASON FOR CONSULTATION: Advice regarding sinus tachycardia requested by Dr. Adame. 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 Adame. The patient apparently tolerated the procedure well and from the postop floor the patient had sinus tachycardia in the range of 125 to 133. The patient is currently drowsy after surgery, unable to give a coherent history. Most of the history was taken from my discussion with staff and review of the chart at this time. There is no history of trauma. No history of any fever, rigors or chills. No history of chest pain, palpitations or shortness of breath at this time. The pulse ox has been 94% on 3-L. PAST MEDICAL HISTORY: History of GERD, hypertension, history of pneumonia, migraines, palpitations, DJD, history of back surgery, history of tonsillectomy. Medications prior to admission include the home medications are: 1. Norvasc 5 mg p.o. daily. 2. Paxil 10 mg daily. 3. Prilosec 20 mg daily. 4. Multivitamins 1 p.o. daily. 5. Astepro 2 sprays daily p.r.n. ALLERGIES: VICODIN, CODEINE, HYDROCODONE, MEPERIDINE, MORPHINE, ULTRAM. FAMILY HISTORY: History of DVT in the family. SOCIAL HISTORY: Previous history of smoking, no current smoking. Occasional alcohol intake. REVIEW OF SYSTEMS: The review of systems could not be taken at length because the patient is drowsy after surgery with sedatives. PHYSICAL EXAM: Pulse is 133 irregular, blood pressure 116/56, respirations 18, temperature is normal, pulse ox is 93% on 3-L. HEENT: Conjunctivae normal. Oral mucosa moist. NECK: No jugular venous distention. No carotid bruit. No lymph node enlargement. CARDIOVASCULAR: S1, S2, tachycardic. RESPIRATORY: Breath sounds diminished at the bases. No rhonchi, no crackles. ABDOMEN: Soft, nontender. No mass palpable. LEGS: No edema, no swelling. NERVOUS SYSTEM: As mentioned earlier, otherwise the patient is drowsy. SKIN: No ulcer, rash or bleeding. LYMPHATICS: No lymph node palpable in the neck, groin or axillae. BACK: Status post surgery. The labs are not available. ASSESSMENT: 1. Tachycardia, possibly sinus postop. 2. Status post revision laminectomy and decompression of L4-5 for spondylolisthesis L4-5 and low back pain with radiculopathy. 3. History of prior laminectomy and decompression L4-5. 4. History of gastroesophageal reflux disease. 5. History of hypertension. 6. History of pneumonia. 7. History of migraines. 8. History of palpitations. 9. History of degenerative joint disease. 10. History of psoriasis. 11. History of section. 12. History of anxiety, not otherwise specified. 13. Remote history of nicotine dependence. 14. FULL CODE. 15. Obesity with body mass index of 37.6. RECOMMENDATIONS AND DISCUSSION: In this 61-year-old woman who presented after surgery, after this time I recommend to continue the current monitoring, continue the current medications, continue symptomatic treatment. I recommend an EKG which shows sinus tachycardia. I recommend to continue to monitor telemetry. Set of troponins and 2-D echo also may be ordered. Otherwise the portable chest x-ray also will be ordered because of the relative hypoxia which is found to be normal at this time. Continue to monitor. Patient may be asked to follow with primary physician closely after discharge. Home medications will be continued. Thank you Dr. Adame for letting us participate in this patient's care. See orders for details. OTILIO
[2016-12-17 11:05] VITALS: BP 109/53
[2016-12-17] MEDS: METOPROLOL TARTRATE 12.5 MG TAB PO SCH (11:05)
[2016-12-17] MEDS: amLODIPine 5 MG TAB PO SCH (11:05)
--- NOTE | 2016-12-17 11:11 | P.DS ---
Providers Date of admission: 12/14/16 07:46 Expected date of discharge: 12/17/16 Attending physician: Pee Adame Consults: 12/14/16 13:18 Consult Physician Routine Consulting Provider: Elpidio Marx Consult Reason/Comments: Medical management Do you want consulting provider notified?: Yes 12/15/16 08:09 Consult Physician Stat Consulting Provider: Bubba Rowell Consult Reason/Comments: elevated trop, tachycardia Do you want consulting provider notified?: Yes Primary care physician: Kike Yuen - Discharge Diagnosis(es) (1) Status post lumbar spinal fusion Current Visit: Yes Status: Acute Hospital Course: This is a 61-year-old female who is admitted to [facility] on 12/06/2016 for revision laminectomy with posterior lumbar decompression and fusion of L4 5 with transforaminal interbody fusion of L4 5, minimally invasive. The procedures performed without convocation or sequelae. Patient is doing well postoperatively. She is ambulating well with her walker with minimal assistance. On postoperative day #3 she is doing well and ready for discharge. Patient is discharged to home on 12/17/2016. Continue to ambulate as tolerated. Report any problems to our office. Plan - Discharge Summary New Discharge Prescriptions: New Cyclobenzaprine [Flexeril] 10 mg PO TID PRN #90 tab PRN Reason: Muscle Spasm HYDROcodone/APAP 7.5-325MG [[place] 7.5-325] 1 each PO Q6HR PRN #90 tab PRN Reason: Pain No Action Azelastine HCl [Astepro] 2 spray NASAL DAILY PRN PRN Reason: Nasal Congestion amLODIPine [Norvasc] 5 mg PO DAILY PARoxetine [Paxil] 20 mg PO DAILY Omeprazole [PriLOSEC] 20 mg PO AC-BID Multivitamin [Multiple Vitamins] 1 tab PO DAILY Discharge Medication List Azelastine HCl [Astepro] 2 spray NASAL DAILY PRN 12/06/16 [History] Multivitamin [Multiple Vitamins] 1 tab PO DAILY 12/06/16 [History] Omeprazole [PriLOSEC] 20 mg PO AC-BID 12/06/16 [History] PARoxetine [Paxil] 20 mg PO DAILY 12/06/16 [History] amLODIPine [Norvasc] 5 mg PO DAILY 12/06/16 [History] Cyclobenzaprine [Flexeril] 10 mg PO TID PRN #90 tab 12/16/16 [Rx] HYDROcodone/APAP 7.5-325MG [[place] 7.5-325] 1 each PO Q6HR PRN #90 tab 12/16/16 [ Rx] Follow up Appointment(s)/Referral(s): Hesham Myles, VANDANA [PHYSICIAN AP OPERATOR] - 2 Weeks (Patient may follow-up with Hesham Myles PA-C or Dr. Adithya Adame at [facility] in 2-3 weeks following discharge. ) Activity/Diet/Wound Care/Special Instructions: 1. Patient may shower Tegaderm dressing intact. 2. Patient may remove Tegaderm dressing in 3 days and shower without a dressing at that time. 3. Patient should keep Steri-Strips intact and allow them to fall off naturally. 4. Patient should refrain from driving until at least after their first follow- up appointment in the office. 5. Patient should avoid excessive bending, twisting, and lifting; no lifting greater than 10 pounds 6. Do not soak in tub Discharge Disposition: HOME SELF-CARE
--- NOTE | 2016-12-17 16:56 | PN ---
DATE OF SERVICE: 12/15/2016 This 61-year-old woman who was admitted after back surgery had sinus tachycardia and mild troponin evaluation. Cardiology evaluated the patient. No chest pain. No palpitation. No shortness of breath. No fever. On exam, alert and oriented x3. Pulse 86, blood pressure 100/60, respirations 16, temperature 98.5, pulse ox 96% on 3 L. HEENT: Conjunctivae normal. NECK: No jugular venous congestion. CARDIAC: S1, S2 muffled. RESPIRATORY: Breath sounds diminished at the bases. A few scattered rhonchi and crackles. ABDOMEN: Soft, non-tender. No mass palpable. No hepatosplenomegaly. LEGS: No edema. No swelling. NERVOUS SYSTEM: No focal deficit. EXAMINATION OF THE BACK: Status post surgery. LABS: WBC 12.5. Troponin 0.035 and 0.024. ASSESSMENT: 1. Status post laminectomy and decompression, L4-5. 2. Sinus tachycardia. 3. Indeterminate troponins. 4. Increased white count. 5. History of gastroesophageal reflux disease. 6. Hypertension. 7. History of pneumonia. 8. Migraines. 9. Degenerative joint disease. RECOMMENDATIONS AND DISCUSSION: I recommend to continue current medications, continue with symptomatic treatment. Cardiology evaluation. Two-D echo with Doppler. See orders for further details. Further recommendations to follow. MTDD
== END 2016-12-17 14:46 | disposition home or self-care (01) | DRG 460 ==
LOC: 2ORMAIN 07:46 → 3SUR 13:34
PROVIDERS: ADMIT Orthopaedic Surgery Orthopaedic Surgery of the Spine; ATTEND Orthopaedic Surgery Orthopaedic Surgery of the Spine
PROC: 0ST20ZZ Resection of Lumbar Vertebral Disc, Open Approach (ICD-10-PCS; principal; 2016-12-14 09:15)
PROC: 0SG00AJ Fusion of Lumbar Vertebral Joint with Interbody Fusion Device, Posterior Approach, Anterior Column, Open Approach (ICD-10-PCS; principal; 2016-12-14 09:15)
PROC: 07DS3ZZ Extraction of Vertebral Bone Marrow, Percutaneous Approach (ICD-10-PCS; principal; 2016-12-14 09:15)
PROC: 0SG0071 Fusion of Lumbar Vertebral Joint with Autologous Tissue Substitute, Posterior Approach, Posterior Column, Open Approach (ICD-10-PCS; principal; 2016-12-14 09:15)
DX: M43.16 Spondylolisthesis, lumbar region (principal); I10 Essential (primary) hypertension; M54.16 Radiculopathy, lumbar region; Z79.899 Other long term (current) drug therapy; Z88.5 Allergy status to narcotic agent; Z87.891 Personal history of nicotine dependence; E66.9 Obesity, unspecified; G43.909 Migraine, unspecified, not intractable, without status migrainosus; K21.9 Gastro-esophageal reflux disease without esophagitis; M19.90 Unspecified osteoarthritis, unspecified site; Z68.37 Body mass index [BMI] 37.0-37.9, adult; Z87.01 Personal history of pneumonia (recurrent)
CPT/HCPCS: 71010; 72100; 80048; 80053; 81001; 81003; 84443; 84484; 85025; 86850; 86891; 86900; 86901; 93306

== ENCOUNTER → 2019-07-03 | Outpatient (CLI) | payer MEDICARE | END | disposition home or self-care (01) | LOC: LABWHC1 13:46 | PROVIDERS: ATTEND Otolaryngology | DX: Z01.818 Encounter for other preprocedural examination (principal); I10 Essential (primary) hypertension | CPT/HCPCS: 36415; 93005 ==

== ENCOUNTER 2023-09-29 07:26 | Day surgery (SDC) | payer MEDICARE ==
[2023-09-28 09:28] VITALS: BMI 36.8
[2023-09-29] MEDS: LACTATED RINGERS 1,000 ML IV SCH (07:59)
[2023-09-29 08:00] VITALS: TEMP 98
[2023-09-29] MEDS ORDERED: PROPOFOL 10 MG/ML 20 ML VIAL IV ONE (08:05)
[2023-09-29] MEDS ORDERED: LIDOCAINE 2% (PF) 20 MG/ML 5 ML VIAL ONE (08:05)
--- NOTE | 2023-09-29 08:29 | P.PCN ---
Date of Procedure: 09/29/23 Procedure(s) Performed: Brief history: Patient is a pleasan 68-year-old white female scheduled for an elective upper endoscopy as well as colonoscopy as a part of evaluation ofEpigastric pain for the last 1 year duration.She also has been complaining of intermittent rectal bleeding.] Procedure performed: Esophagogastroduodenoscopy With the biopsy Colonoscopy Preoperative diagnosis: Chronic epigastric pain Intermittent rectal bleeding Anesthesia: MAC Procedure: After informed consent was obtained from the patient was brought into the endoscopy unit and IV sedation was administered by anesthesia under continuous monitoring. Initially upper endoscopy was done. The Olympus GF 160 video end oscope was inserted inserted into the mouth and esophagus intubated without any difficulty and was gradually advanced into the stomach and duodenum and carefully examined. The bulb and second part of the duodenum appeared normal. The scope was then withdrawn into the stomach adequately insufflated with air and upon careful examination the antrum and body, cardia and fundus appeared normal. The scope was then withdrawn into the esophagus. The GE junction was located at 40 cm to the incisors. It appeared regular with no erythema erosions or ulcerations. Rest of the esophagus appeared normal. Patient tolerated the procedure well. At this time the patient continued to remain sedation. Initial digital rectal examination was normal. Olympus CF 160 video colonoscope was then inserted into the rectum and gradually advanced to the cecum without any difficulty. Careful examination was performed as the scope was gradually being withdrawn. The prep was excellent. The cecum, ascending colon, transverse colon, descending colon, sigmoid colon and rectum appeared normal. Scattered sigmoid diverticulosis. Retroflexion was performed in the rectum and Small internal hemorrhoids were not ed. Patient tolerated the procedure well. Impression: 1. Upper endoscopy revealed mild antral gastritis,: Hypertensive gastropathy and small distal esophageal varices] 2. Colonoscopy revealed scattered sigmoid diverticula and small internal hemorrhoids. Recommendations: Findings of this examination were discussed with the patient as well as her family. She was advised to follow with the biopsy results. Continue Protonix 40 mg daily and follow antrum reflux measures.Advised to start high-fiber diet and fiber supplements on a regular basis.Recommended repeat colonoscopy in10 years.
[2023-09-29 09:26] VITALS: BP 110/78; PULSE 78; RESP 18
== END 2023-09-29 09:16 | disposition home or self-care (01) ==
LOC: ORWHC2ENDO 07:26
PROVIDERS: ATTEND Internal Medicine Gastroenterology
DX: K29.50 Unspecified chronic gastritis without bleeding (principal); K62.5 Hemorrhage of anus and rectum; G89.29 Other chronic pain; K57.30 Diverticulosis of large intestine without perforation or abscess without bleeding; K64.8 Other hemorrhoids; I85.00 Esophageal varices without bleeding; I10 Essential (primary) hypertension; F41.9 Anxiety disorder, unspecified; K21.9 Gastro-esophageal reflux disease without esophagitis; Z90.89 Acquired absence of other organs; Z98.891 History of uterine scar from previous surgery; Z90.49 Acquired absence of other specified parts of digestive tract; Z88.5 Allergy status to narcotic agent; Z98.890 Other specified postprocedural states; Z79.899 Other long term (current) drug therapy
CPT/HCPCS: 88305; 45378; 43239; J2704; J2001